=== PATIENT | male | born 1980 | race Caucasian/White ===

== ENCOUNTER 2016-08-10 03:56 | Emergency (ER) | payer SELFPAY ==
[2016-08-10] MEDS ORDERED: Acetaminophen/Codeine 30-300mg Tablet ONE (04:41)
[2016-08-10] MEDS ORDERED: Ketorolac Tromethamine 30 MG/ML VIAL ONE (04:41)
[2016-08-10] MEDS ORDERED: Piperacillin/Tazobactam 3.375 GM VIAL ONE (04:41)
[2016-08-10 04:44] LABS: #Basophils 0.1 thou/uL (0.0-0.2); #Eosinphils 0.3 thou/uL (0.0-0.7); #Lymphocytes 1.7 thou/uL (1.20-3.40); #Monocytes 0.6 thou/uL (0.11-0.59); #Neutrophils 3.3 thou/uL (1.40-6.50); %Basophils 1.4 % (0.0-1.0); %Eosinophils 5.5 % (0.0-10.0); %Lymphocytes 28.6 % (21.0-51.0); %Monocytes 10.6 % (0.0-10.0); %Neutrophils 53.9 % (42.0-75.0); Hemoglobin 12.3 g/dL (14.0-18.0); Mean Corpuscular HGB CONC 34.9 g/dL (32.0-36.0); Mean Corpuscular Hemoglobin 31.6 pg (27.0-31.0); Mean Corpuscular Volume 90.5 fl (80.0-94.0); Mean Platelet Volume 7.1 fL (7.4-10.4); Platelet Count 248 thou/uL (130-400); RBC Distribution Width 11.4 % (11.5-14.5); Red Blood Cell (RBC) Count 3.88 mill/uL (4.70-6.10)
[2016-08-10 04:54] LABS: ALT (SGPT) 15 U/L (0-55); AST (SGOT) 22 U/L (5-34); Albumin 3.6 g/dL (3.5-5.0); Alkaline Phosphatase 69 U/L (40-150); Anion Gap 12 mmol/L (10-20); BUN (Urea Nitrogen) 6 mg/dL (8.9-20.6); Bilirubin, Total Less than 0.3 mg/dL (0.2-1.2); Calc. Creatinine Clearance 0 mL/min (70-130); Calcium 8.7 mg/dL (7.8-10.44); Carbon Dioxide 26 mmol/L (22-29); Chloride 105 mmol/L (98-107); Estimated GFR-MDRD Greater than 90; Globulin 3.4 g/dL (2.4-3.5); Glucose 111 mg/dL (70-105); Potassium 3.4 mmol/L (3.5-5.1); Sodium 140 mmol/L (136-145)
[2016-08-10] MEDS ORDERED: Potassium Chloride 20 MEQ TAB ONE (05:00)
[2016-08-10] MEDS ORDERED: Silver Sulfadiazine 1% Cream 50 GM JAR ONE (05:06)
[2016-08-10] MEDS ORDERED: Sodium Chloride Irrig Solution 250 ML BOT ONE (07:42)
[2016-08-10] MEDS ORDERED: Sodium Chloride 0.9% 100 ML BAG ONE (07:42)
== END 2016-08-10 07:10 | disposition home or self-care (01) ==
LOC: MADERS 03:56
DX: L03.116 Cellulitis of left lower limb (principal); L03.115 Cellulitis of right lower limb; I10 Essential (primary) hypertension; F17.210 Nicotine dependence, cigarettes, uncomplicated
CPT/HCPCS: 80053; 85025; 87040; 87070; 87077; 87205; 96365; 96367; 96375; J1885; J2543; J3370; J7050

== ENCOUNTER 2017-11-08 11:02 | Outpatient (CLI) | payer OTHER ==
--- NOTE | 2017-11-08 12:49 | RAD ---
RIGHT SHOULDER TWO VIEWS: History: Right shoulder pain. 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 No fracture or dislocation or bony destruc tion identified. POS: [facility]
== END 2017-11-08 11:03 | disposition home or self-care (01) ==
LOC: MADRAD 11:02
PROVIDERS: ATTEND Family Medicine
DX: M19.011 Primary osteoarthritis, right shoulder (principal)

== ENCOUNTER 2018-05-11 16:43 | Emergency (ER) | payer SELFPAY | END 2018-05-11 17:20 | disposition home or self-care (01) | LOC: MADERS 16:43 | DX: N50.89 Other specified disorders of the male genital organs (principal); R21 Rash and other nonspecific skin eruption; I10 Essential (primary) hypertension; F32.9 Major depressive disorder, single episode, unspecified; Z87.891 Personal history of nicotine dependence | CPT/HCPCS: 99281 ==

== ENCOUNTER 2020-06-17 05:42 | Emergency (ER) | payer SELFPAY ==
[2020-06-17] MEDS ORDERED: traMADol HCl 50 MG TAB ONE (06:30)
--- NOTE | 2020-06-17 08:12 | RAD ---
XR Knee Rt 4 View STANDARD History: Knee pain Comparison: None. Findings: No acute displaced fracture or malalignment. Soft tissues are unremarkable. No significant joint effusion. Impression: No acute osseous abnormality.
== END 2020-06-17 06:33 | disposition home or self-care (01) ==
LOC: MADERS 05:42
DX: S89.91XA Unspecified injury of right lower leg, initial encounter (principal); I10 Essential (primary) hypertension; F17.210 Nicotine dependence, cigarettes, uncomplicated; X50.9XXA Other and unspecified overexertion or strenuous movements or postures, initial encounter